=== PATIENT | male | born 2000 | race Caucasian/White ===

== ENCOUNTER 2021-11-25 21:16 | Emergency (ER) | payer MEDICAID, SELFPAY ==
[2021-11-25 21:17] VITALS: PULSE 69; RESP 16; TEMP 36.9; O2SAT 99; BMI 21.1
--- NOTE | 2021-11-25 21:19 | XRR_ITS ---
PROCEDURE INFORMATION: Exam: XR Left Hand Exam date and time: 11/25/2021 9:36 PM Age: 21 years old Clinical indication: Injury or trauma; Fall; Blunt trauma (contusions or hematomas); Hand; Left TECHNIQUE: Imaging protocol: Radiologic exam of the Left hand. Views: 3 or more views. COMPARISON: No relevant prior studies available. FINDINGS: Bones/joints: The there is hyperextension the 1st metacarpophalangeal joint. Alignment is otherwise normal. No acute fracture. Soft tissues: Visible soft tissues are unremarkable. XR/XR hand LT min 3V* [id number] IMPRESSION: 1. No acute fracture. 2. Hyperextension of the 1st metacarpophalangeal joint.
--- NOTE | 2021-11-25 21:56 | ED_ITS ---
HPI - Extremity Problem General: Chief complaint: Extremity Injury, Upper Stated complaint: left hand injury Time Seen by Provider: 11/25/21 21:19 History of Present Illness: Patient comes in with injury to the left hand. Patient reports he was doing a flip over a hay bale and caught his hand and the string of the bale causing it to bend backwards. Since then patient's been unable to move his thumb. Patient appears nontoxic. Patient appears in mild pain. Patient's thumb on his left hand is hyperextended. Associated symptoms: Deny chest pain, fever(s) or rash Review of Systems Const: Denies: fever(s) Card: Denies: chest pain Resp: Denies: dyspnea Musc: Reports: extremity pain Skin/Breast: Denies: rash Procedures Nerve Block Nerve Block 1: Local Anesthetic: lidocaine 1% Amount of anesthesia used (mL): 3 Side: left Nerve Blocks: digital Procedure Successful: Yes Patient Tolerated Procedure: well Course Vital Signs: Vital signs: Vital Signs Temperature 98.4 F 11/25/21 21:17 Pulse Rate 69 11/25/21 21:17 Respiratory Rate 16 11/25/21 21:17 Pulse Oximetry 99 11/25/21 21:17 Oxygen Delivery Me thod 11/25/21 21:17 MDM - Extremity (Nontraumatic) Medical Decision Making Patient comes in today with injury to the left hand and thumb. On exam patient appears in no acute distress. Patient has his thumb in a hyperextended. No bruising and no significant swelling is noted. Differential diagnosis includes dislocation, fracture, sprain. X-ray noted hyperextended thumb but no other abnormality. Billings the patient probably had a subluxation of the MCP joint of the thumb. Under digital block the finger was manipulated and patient was able to then to do active range of motion without difficulty. Recommend activity as tolerated and follow-up. Patient stated understanding of care plan and need for follow-up as needed. Lab Data Radiology Impressions Hand X-Ray 11/25/21 21:19 IMPRESSION: 1. No acute fracture. 2. Hyperextension of the 1st metacarpophalangeal joint. Discharge Plan Discharge Patient Disposition: Home Clinical Impression: Subluxation of finger Qualifiers: Encounter type: initial encounter Qualified Code(s): S63.209A - Unspecified subluxation of unspecified finger, initial encounter Condition: Stable Discharge Orders: Discharge ED (Routine); Ordered 11/25/21 Ordered By: Abelardo Stern Discharge Diet: Usual diet Discharge Activity: Increase activity as tolerated Patient Instructions: Musculoskeletal Pain (ED) Activity Restrictions/Additional Instructions: Light activity. Use acetaminophen or ibuprofen for pain. Follow-up with primary care for further instruction. Return to ER for new concerns. Coding Level of Care Code ED Field Sales Trainer for Latisha Wing
== END 2021-11-25 22:25 | disposition home or self-care (01) ==
PROVIDERS: Emergency Provider Nurse Practitioner Family
DX: S63.112A Subluxation of metacarpophalangeal joint of left thumb, initial encounter (principal); X50.0XXA Overexertion from strenuous movement or load, initial encounter
CPT/HCPCS: 64450; 73130; 99283

== ENCOUNTER 2024-08-01 16:49 | Emergency (ER) | payer BC, MEDICAID, SELFPAY ==
[2024-08-01 16:56] VITALS: BP 126/49; PULSE 76; RESP 14; TEMP 36.7; O2SAT 99; BMI 22.7
--- NOTE | 2024-08-01 17:58 | XRR_ITS ---
PROCEDURE INFORMATION: Exam: XR Left Tibia and Fibula Exam date and time: 08/01/2024 6:11 PM Age: 24 years old Clinical indication: Lower leg; Left; Lt leg pain; No known injury TECHNIQUE: Imaging protocol: Radiologic exam of the left tibia and fibula. Views: 2 views. COMPARISON: No relevant prior studies available. FINDINGS: Bones/joints: Normal. Soft tissues: Unremarkable. XR/XR tibia fibula LT 2V [id number] IMPRESSION: No acute findings.
--- NOTE | 2024-08-01 19:52 | W.ED.EXTPRO ---
HPI - Extremity Problem General: Chief complaint: Extremity Injury, Lower Stated complaint: lft leg pain Time Seen by Provider: 08/01/24 17:28 History of Present Illness: 24 yo male patient presents to ER with rowland pain x 1 month. Pt denies ny trauma or injury but states he plays alot of basketball on the court. Pt denies any weakness, fever, or any other complaints. Related Data Home Medications ?Medication ?Instructions ?Recorded ?Confirmed No Known Home Medications 12/04/21 12/04/21 Allergies Allergy/AdvReac Type Severity Reaction Status Date / Time prednisone Allergy CYNTHIAY-Swell Verified 12/04/21 09:21 Lip/Tongue/Throat Review of Systems General: Reports: 10 or more systems reviewed and unremarkable except in HPI and below PFSH ED PFSH: Medical History Psychiatric care ADHD Anxiety Depression Surgical History (Updated 12/04/21 @ 09:37 by Jorge Alberto Naranjo MD) History of wisdom tooth extraction, class I edentulism History of foot surgery right foot Family History (Updated 12/04/21 @ 09:25 by Hayde Mckenna LPN) Mother Diabetes Hypertension Sister Lung disease asthma Brother Bleeding disorder anemia Denies family history of CAD (coronary artery disease) Clotting disorder Dementia Hyperlipidemia Chronic kidney disease (CKD) Anesthesia complication Cancer Stroke Social History (Updated 12/04/21 @ 09:24 by Hayde Mckenna LPN) Smoking and tobacco/nicotine status: never used tobacco/nicotine Second hand smoke exposure: No Alcohol intake: never Substance/Drug Use: never Physical Exam Const: COMMON NORMALS: no acute distress, average body habitus, patient oriented x3, no limitations, healthy appearing, alert and well nourished Resp: COMMON NORMALS: normal respiratory effort Extremity: NARRATIVE EXTREMITY EXAM: mild tenderness noted to anterior left lower ext. NVI distally Neuro: COMMON NORMALS: patient oriented x3 SENSORIUM/ORIENTATION: Yes alert Skin: COMMON NORMALS: no rashes or lesions noted, no wounds and turgor normal GENERAL SKIN EXAM: no rashes or lesions noted and turgor normal Course Vital Signs: Vital signs: Vital Signs Temperature 98.1 F 08/01/24 16:56 Pulse Rate 76 08/01/24 16:56 Respiratory Rate 14 06/01/25 16:56 Blood Pressure 126/49 08/01/24 16:56 Pulse Oximetry 99 08/01/24 16:56 MDM - Extremity (Nontraumatic) Medical Decision Making Patient is well appearing non toxic and in no acute distress. 24 yo male patient presents to ER with rowland pain x 1 month. Pt denies ny trauma or injury but states he plays alot of basketball on the court. Pt denies any weakness, fever, or any other complaints. xray is negative for any acute findings. There is no evidence of cellulitits there is no erythema or swelling noted. there is no calf tenderness or swelling. Pt ambulates without difficulty. Return precautions advised, follow up discussed and home care revewied. findings c/w rowland splint. Pt shoes are busting open and wore down and this is likely the contributing factor. All radiology interpretation(s) finalized by discharge Discharge Plan Discharge Patient Disposition: Home Clinical Impression: Rowland splint Qualifiers: Encounter type: initial encounter Laterality: unspecified laterality Qualified Code(s): S86.899A - Other injury of other muscle(s) and tendon(s) at lower leg level, unspecified leg, initial encounter Condition: Stable Prescriptions: No Action No Known Home Medications Discharge Orders: Discharge ED (Routine); Ordered 08/01/24 Ordered By: Nicky Ayon Discharge Diet: Advance as tolerated Discharge Activity: Increase activity as tolerated Patient Instructions: Opioid Safety, Pain Management, Rowland Splints Activity Restrictions/Additional Instructions: At this point switch over to Heat instead of ice Replace shoes Return to ER if the prescribed treatment plan isn't working your rowland becomes very warm, red, and painful the pain is constant your rowland swells or becomes bruised you develop numbness or tingling in your feet If no improvement follow up with PCP for additional testing Print Language: Yi Coding Level of Care Code ED Server Software Engineer for Latisha Wing
== END 2024-08-01 19:58 | disposition home or self-care (01) ==
PROVIDERS: Emergency Provider Registered Nurse
DX: S86.892A Other injury of other muscle(s) and tendon(s) at lower leg level, left leg, initial encounter (principal); X58.XXXA Exposure to other specified factors, initial encounter
CPT/HCPCS: 73590; 99283

== ENCOUNTER 2024-10-10 18:29 | Emergency (ER) | payer BC, MEDICAID, SELFPAY ==
--- NOTE | 2024-10-10 18:52 | XRR_ITS ---
PROCEDURE INFORMATION: Exam: XR Chest Exam date and time: 10/10/2024 7:21 PM Age: 24 years old Clinical indication: Fever and shortness of breath; SOB with fever TECHNIQUE: Imaging protocol: Radiologic exam of the chest. Views: 1 view. COMPARISON: No relevant prior studies available. FINDINGS: Lungs: Unremarkable. No consolidation. Pleural spaces: Unremarkable. No pleural effusion. No pneumothorax. Heart/Mediastinum: Unremarkable. No cardiomegaly. Bones/joints: Unremarkable. XR/XR chest 1V portable [id number] IMPRESSION: No acute findings.
[2024-10-10 18:54] VITALS: BP 119/64; PULSE 72; RESP 16; TEMP 37.2; O2SAT 94
--- NOTE | 2024-10-10 19:43 | W.ED.URI ---
HPI - URI/Sore Throat General: Chief Complaint: Upper Respiratory Infection Stated Complaint: Running fever, sore throat, cough with phelm Time Seen by Provider: 10/10/24 19:17 History of Present Illness: 24-year-old man who is healthy presenting with cough, congestion, significant sore throat for 3 days. Has had a fever as well. No sick contacts. His cough is productive of some clear to green phlegm. It is somewhat improved, but sore throat symptoms are the worst. Related Data Previous Rx's ?Medication ?Instructions ?Recorded cephalexin 500 mg capsule 500 mg PO Q6H 7 days #28 caps 10/10/24 Allergies Allergy/AdvReac Type Severity Reaction Status Date / Time prednisone Allergy ALGY-Swell Verified 12/04/21 09:21 Lip/Tongue/Throat [facility] ED PFSH: Medical History Psychiatric care ADHD Anxiety Depression Surgical History History of wisdom tooth extraction, class I edentulism History of foot surgery right foot Family History (Updated 12/04/21 @ 09:25 by Hayde Mckenna LPN) Mother Diabetes Hypertension Sister Lung disease asthma Brother Bleeding disorder anemia Denies family history of CAD (coronary artery disease) Clotting disorder Dementia Hyperlipidemia Chronic kidney disease (CKD) Anesthesia complication Cancer Stroke Social History Smoking and tobacco/nicotine status: never used tobacco/nicotine Second hand smoke exposure: No Alcohol intake: never Substance/Drug Use: never Physical Exam Const: COMMON NORMALS: no acute distress GENERAL APPEARANCE: cooperative; not ill appearing and not frail appearing HENMT: COMMON NORMALS: normocephalic, atraumatic and Normal external nose present HEAD & SCALP: normocephalic and atraumatic FACE & SINUS: normal facial exam and face symmetric NOSE: Normal external nose present THROAT: posterior oropharynx abnormal edema and erythema; no exudates and postnasal drainage Eye: COMMON NORMALS: Equal, round and reactive pupils present and EOMs intact bilaterally PUPIL: Yes Equal, round and reactive pupils present Neck/C-Spine: GENERAL: Yes trachea midline Chest: CHEST: Yes Symmetrical chest wall rise Resp: COMMON NORMALS: normal respiratory effort, No retractions, No use of accessory muscles and clear to auscultation bilaterally AUSCULTATION: clear to auscultation bilaterally Cardio: COMMON NORMALS: regular rate and regular rhythm RATE: regular rate RHYTHM: regular rhythm GI: COMMON NORMALS: Normal to inspection, nondistended, normoactive bowel sounds present Extremity: COMMON NORMALS: no pedal edema Neuro: GE COMA SCALE: document GCS findings Musella coma scale eye opening: Spontaneous Musella coma scale verbal response: Orientated Ge coma scale motor response: Obey commands Musella coma scale total score: 15 SENSORY EXAM: Yes extremities (intact) Psych: COMMON NORMALS: speech normal SPEECH: Yes normal speech Skin: COMMON NORMALS: no rashes or lesions noted GENERAL SKIN EXAM: no rashes or lesions noted Course Vital Signs: Vital signs: Vital Signs Temperature 98.9 F 10/10/24 18:54 Pulse Rate 72 10/10/24 18:54 Respiratory Rate 16 10/10/24 18:54 Blood Pressure 119/64 10/10/24 18:54 Pulse Oximetry 94 10/10/24 18:54 Oxygen Delivery Me thod Room Air 10/10/24 18:54 MDM - URI/Sore Throat Medical Decision Making Chest x-ray is normal. Awaiting flu/COVID/RSV swab and strep swab. No signs of retropharyngeal abscess on exam. Swabs are negative. He has significant pain. 1 dose dexamethasone here, with pain medication. Antibiotics for the next few days Lab Data Radiology Impressions Chest X-Ray 10/10/24 18:52 IMPRESSION: No acute findings. Laboratory Results Influenza A (PCR) Negative (Negative) 10/10/24 19:24 Influenza Type B (PCR) Negative (Negative) 10/10/24 19:24 RSV (PCR) Negative (Negative) 10/10/24 19:24 SARS-CoV-2 (PCR) Negative (Negative) 10/10/24 19:24 Group A Strep Rapid Negative (Negative) 10/10/24 19:41 All radiology interpretation(s) finalized by discharge Discharge Plan Discharge Patient Disposition: Home Clinical Impression: Upper respiratory infection, Pharyngitis Condition: Stable Prescriptions: New cephalexin 500 mg capsule 500 mg PO Q6H 7 Days Qty: 28 0RF Discharge Orders: Discharge ED (Routine); Ordered 10/10/24 Ordered By: Eliecer Huber Patient Instructions: Pharyngitis (ED), Opioid Safety, Pain Management, Patient Portal & Torres Instructions Activity Restrictions/Additional Instructions: Return for any problems. Medication as directed. Take anti-inflammatory medication for continued pain such as ibuprofen. Salt water gargles may help as well. Print Language: Estonian Coding Level of Care Code ED Library Media Specialist for Latisha Wing
[2024-10-10 19:59] LABS: Rapid Strep A Test Negative (Negative)
[2024-10-10 20:09] LABS: Respiratory Syncytial Virus Ce NEGATIVE (Negative); SARS-CoV-2 PCR NEGATIVE (Negative)
[2024-10-10] MEDS: HYDROcodone-APAP 7.5-325 mg/15 mL UDC PO (21:11)
--- OUTSIDE RECORDS SUMMARY | 2024-10-13 07:54 | XMS_ITS | Encounter Summary ---
Author Organization [facility] Address [address] [place] [address] Care Team Providers Care A P Mechanic Name Role Phone Yogi Solis MD Primary Care Provider + Encounter Details Date Type Department Care Team (Latest Contact Info) Description 04/11/2006 Outpatient Historical [facility] Orthopedics- [address] [place] [address] Abelardo Sesay III, MD [address] 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
--- OUTSIDE RECORDS SUMMARY | 2024-10-13 07:54 | XMS_ITS | Clinical Summary ---
Author Organization [facility] Address [address] [facility] Attn: Epic Prelude ADT JACE ASHER [address] Care Team Providers Care Chief Concierge Name Role Phone Yogi Solis MD Primary Care Provider + Allergies Active Allergy Reactions Criticality Noted Date Comments Bee Venom Protein (Honey Bee) Shortness of Breath/Wheezing High 12/31/2018 Active Problems Problem Noted Date Diagnosed Date Mixed receptive-expressive language disorder 08/2010 ADHD (attention deficit hyperactivity disorder) 10/03/2010 Nonorganic enuresis 01/05/2009 Encounters Date Type Department Care Team Description 08/17/2024 External Device Data [facility] ABSTRACTION Provider, Abstract 07/22/2024 External Device Data [facility] ABSTRACTION Provider, Abstract 07/22/2024 External Device Data [place] ABSTRACTION Provider, Abstract 07/21/2024 External Device Data [place] ABSTRACTION Provider, Abstract 07/21/2024 External Device Data [place] ABSTRACTION Provider, Abstract 07/20/2024 External Device Data [place] ABSTRACTION Provider, Abstract from Last 3 Months Immunizations Immunization Administration Dates Next Due (M-M-R II/PRIORIX)(12 MO UP) MEASLES, MUMPS AND RUBELLA VIRUS VACCINE, 0.5 ML IM/SUBCUT 07/05/2005,03/15/2002 (VARIVAX)(12 MOS UP)VARICELL A VIRUS VACCINE (PF) 0.5 ML, SUB CUT 12/21/2003 Dt Dtp Dtap Vaccine 07/05/2005, 4,2001,2001,2001 HIB, Unspecified Formulation 07/05/2005, 2001,2001,2001 Hepatitis A Vaccine Ped Adol IM 2 Dose VFC 07/11/2010,08/29/2008 Hepatitis B Vaccine 2001,2001,2001 IPV/OPV 07/05/2005, 3,2001,2001 Influenza Seasonal Unspecifi ed Formulation IM 02/04/2003 Influenza Vaccine Split 3+ Y rs PF IM VFC 12/18/2012,02/06/2012 Pneumococcal 7-valent conjug ate vaccine IM 12/21/2003,03/15/2002,2001 Tdap Vaccine > 7 Yo IM VFC 09/27/2011 Varicella Vaccine Live Sq VFC 08/29/2008 Family History Medical History Relation Name Comments Respiratory Disease Maternal Grandmother Diabetes Mother Relation Name Status Comments Maternal Grandmother Mother Social History Tobacco Use Types Packs/Day Years Used Date Smoking Tobacco: Never Smokeless Tobacco: Never Alcohol Use Standard Drinks/Week Comments Never 0 (1 standard drink = 0.6 oz pur e alcohol) Sex and Gender Information Value Date Recorded Sex Assigned at Not on file 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 Gender Identity Not on file Sexual Orientation Not on file Last Filed Vital Signs Vital Sign Reading Time Taken Comments Blood Pressure 100/59 10/14/2019 11:35 AM CDT Pulse 75 10/14/2019 11:35 AM CDT Temperature 36.5 C (97.7 F) 08/13/2019 10:00 AM CDT Respiratory Rate 14 08/13/2019 10:00 AM CDT Oxygen Saturation - - Inhaled Oxygen Concentration - - Weight 60.3 kg (133 lb) 10/14/2019 11:35 AM CDT Height 172.7 cm (5' 8 ) 10/14/2019 11:35 AM CDT Body Mass Index 20.22 10/14/2019 11:35 AM CDT Plan of Treatment Health Maintenance Due Date Last Done Comments HPV VACCINES (1 - Male 3-dos e series) 2016 DTAP/TDAP/TD VACCINES (7 - T d or Tdap) 09/26/2021 09/27/2011, 07/05/2005, 12/21/2003, Additional history exists COVID-19 Vaccine (4 - 2023-2 5 season) 2023 07/18/2021, 08/15/2020, 07/17/2020 INFLUENZA VACCINE (#1) 2024 3, 02/06/2012, 02/04/2003 HEPATITIS B VACCINES Completed 2001, 2001, 2001, Additional history exists Insurance [facility] MEDICAID * Guarantor: LACEY LEBLANC JR. Account Type Relation to Patient Date of Phone Billing Address Personal/Family [address] [place] [address] RX [employer] Medicaid Care Teams Chief Concierge Relationship Specialty Start Date End Date Yogi Solis MD [address] [place] [id number] PCP - General Family Practice 07/04/11
--- OUTSIDE RECORDS SUMMARY | 2024-10-13 07:54 | XMS_ITS | Encounter Summary ---
Author Organization [facility] Address [address] [place] [address] Care Team Providers Care Bundle Helper Name Role Phone Yogi Solis MD Primary Care Provider + Encounter Details Date Type Department Care Team (Late st Contact Info) Description 02/04/2003 Outpatient Historical [facility] Family Medicine [address] [address] Naveen Mayer, DO [address] [place] [id number] Vaccine for influenza (Primary Dx) Social History Tobacco Use Types Packs/Day Years Used Date Smoking Tobacco: Never Assessed Sex and Gender Information Value Date Recorded Sex Assigned at Not on file 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
--- OUTSIDE RECORDS SUMMARY | 2024-10-13 07:54 | XMS_ITS | Encounter Summary ---
Author Organization [facility] Address [address] [place] [address] Care Team Providers Care Trauma Therapist Name Role Phone Yogi Solis MD Primary Care Provider + Encounter Details Date Type Department Care Team (Latest Contact Info) Description 04/04/2006 Outpatient Historical [facility] Orthopedics- [address] [place] [address] Abelardo Sesay III, MD [address] [facility] [address] [place] [address] Closed Fracture of Lower End of Radius with Ulna (Primary Dx) Social History Tobacco Use Types Packs/Day Years Used Date Smoking Tobacco: Never Assessed Sex and Gender Information Value Date Recorded Sex Assigned at Not on file Legal Sex Male 4:56 AM CASE MONITOR Gender Identity Not on file Sexual Orientation Not on file documented as of this encounter Plan of Treatment Not on file documented as of this encounter Visit Diagnoses Diagnosis Closed fracture of lower end of radius with ulna- Primary documented in this encounter Care Teams Trauma Therapist Relationship Specialty Start Date End Date Yogi Solis MD PCP - General Family Practice 07/04/11 documented as of this encounter
--- OUTSIDE RECORDS SUMMARY | 2024-10-13 07:54 | XMS_ITS | Encounter Summary ---
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
--- OUTSIDE RECORDS SUMMARY | 2024-10-13 07:54 | XMS_ITS | Clinical Summary ---
Author Organization [facility] Address [address] [place] [address] Care Team Providers Care Radiology Interventional Physician Name Role Phone Yady Adame Primary Care Provider [phone] Source Comments PLEASE NOTE, if this patient is a minor, it may be UNLAWFUL to discuss sensitive information that is contained in these records (such as FAMILY PLANNING, MENTAL HEALTH or SUBSTANCE ABUSE) with the minor patient's parent or other person without the patient's specific authorization.[facility] Active Problems Problem Noted Date Diagnosed Date Scleral icterus Social History Tobacco Use Types Packs/Day Years Used Date Smoking Tobacco: Never Assessed Social Connections Answer Date Recorded Connectedness 0 11/17/2023 Financial Resource Strain Answer Date R ecorded Financial Resource Strain 0 2023 Stress Answer Date Recorded Stress 0 06/25/2023 Physical Activity Answer Date Recorded Physical Activity 0 06/25/2023 Food Insecurity Answer Date Recorded Food 0 11/27/2023 Transportation Needs Answer Date Record ed Transportation 0 06/25/2023 Housing Stability Answer Date Recorded Housing 0 06/25/2023 Safety and Environment Answer Date Evin rded Safety 0 06/25/2023 Utilities Answer Date Recorded Utilities 0 06/25/2023 Employment Answer Date Recorded Stress 0 11/17/2023 Sex and Gender Information Value Date Recorded Sex Assigned at Not on file Legal Sex Male 5:11 PM PDT Gender Identity Male 08/22/2023 4:45 PM PDT Sexual Orientation Straight 08/22/2023 4: 45 PM PDT Last Filed Vital Signs Vital Sign Reading Time Taken Comments Blood Pressure 128/88 08/30/2022 9:13 AM CDT Pulse 68 08/30/2022 9:13 AM CDT Temperature 36.4 C (97.6 F) 08/30/2022 9:13 AM CDT Respiratory Rate 18 08/30/2022 9:13 AM CDT Oxygen Saturation 98% 08/30/2022 9:13 AM CDT Inhaled Oxygen Concentration - - Weight 64.3 kg (141 lb 12.2 oz) 08/30/2022 9:13 AM CDT Height 170.2 cm (5' 7 ) 08/30/2022 9:13 AM CDT Body Mass Index 22.2 08/30/2022 9:13 AM CDT Plan of Treatment Health Maintenance Due Date Last Done Comments Anxiety Screening 2001 Hepatitis C Screening 2001 Tobacco Screening 2001 Imm-Varicella (1 of 2 - 13+ 2-dose series) 2014 HIV Screening 2016 Imm-HPV (1 - Male 3-dose series) 2016 Imm-DTaP/Tdap/Td (1 - Tdap) 2020 Imm-Hepatitis B (1 of 3 - 19+ 3-dose series) Hypertension Screening (#1) 08/30/2023 [id number] (1 - 2023- season) 2023 Alcohol and Drug Screen 03/03/2024 Depression Annual Screen 03/03/2024 08/30/2022 Imm-Influenza (#1) 2024 Insurance [employer] Care Teams Radiology Interventional Physician Relationship Specialty Start Date End Date Yady Adame PA [address] [place] [address] PCP - General 08/22/23
--- OUTSIDE RECORDS SUMMARY | 2024-10-13 07:54 | XMS_ITS | Encounter Summary ---
Author Organization [facility] Address [address] [place] [address] Care Team Providers Care Women'S Swim Coach Name Role Phone Yady Adame Primary Care Provider [phone] Reason for Visit * Reason Comments Office Visit: Converted Data Conversion Encounter Details Date Type Department Care Team ([facility] st Contact Info) Description 09/09/2023 Dental Interim Note [facility] [address] [place] [address] [facility], [facility] [place] Social History Tobacco Use Types Packs/Day Years Used Date Smoking Tobacco: Never Assessed Social Connections Answer Date Recorded Social Connections and Isolation 0 06/25/2023 Financial Resource Strain Answer Date R ecorded Financial Resource Strain 0 2023 Stress Answer Date Recorded Stress 0 06/25/2023 Physical Activity Answer Date Recorded Physical Activity 0 06/25/2023 Food Insecurity Answer Date Recorded Food 0 06/25/2023 Transportation Needs Answer Date Record ed Transportation 0 06/25/2023 Housing Stability Answer Date Recorded Housing 0 06/25/2023 Safety and Environment Answer Date Evin rded Safety 0 06/25/2023 Utilities Answer Date Recorded Utilities 0 06/25/2023 Employment Answer Date Recorded Employment 0 06/25/2023 Sex and Gender Information Value Date Recorded Sex Assigned at Not on file Legal Sex Male 5:11 PM PDT Gender Identity Male 08/22/2023 4:45 PM PDT Sexual Orientation Straight 08/22/2023 4: 45 PM PDT documented as of this encounter Plan of Treatment Scheduled Orders Name Type Priority Associated Diagnoses Order Schedule BITEWINGS - FOUR RADIOGRAPHIC IMAGES Dental Procedures Routine 1 Occurren alejo starting 08/19/2023 PANORAMIC RADIOGRAPHIC IMAGE Dental Procedures Routine 1 Occurrenc es starting 08/19/2023 7 7 INTRAORAL - PERIAPICAL FIRST RADIOGRAPHIC IMAGE Dental Procedures Routine 1 Occurrenc es starting 08/19/2023 8 8 INTRAORAL - PERIAPICAL FIRST RADIOGRAPHIC IMAGE Dental Procedures Routine 1 Occurrenc es starting 08/19/2023 9 9 INTRAORAL - PERIAPICAL FIRST RADIOGRAPHIC IMAGE Dental Procedures Routine 1 Occurrenc es starting 08/19/2023 25 25 INTRAORAL - PERIAPICAL FIRST RADIOGRAPHIC IMAGE Dental Procedures Routine 1 Occurrenc es starting 08/19/2023 documented as of this encounter Visit Diagnoses Not on filedocumented in this encounter Care Teams Women'S Swim Coach Relationship Specialty Start Date End Date Yady Adame PA [address] [place] [address] PCP - General 08/22/23 documented as of this encounter
--- OUTSIDE RECORDS SUMMARY | 2024-10-13 07:54 | XMS_ITS | Encounter Summary ---
Author Organization [facility] Address [address] [place] [address] Care Team Providers Care Meat Cutter Name Role Phone Yogi Solis MD Primary Care Provider + Reason for Referral * Radiology Services (Routine) - Closed Specialty Diagnoses / Procedures Referred By Contac t Referred To Contact Diagnoses Accessory navicular bone of right foot Procedures XR FLUORO LESS THAN 1 HOUR Eliecer Villatoro MD Phone: tel: fax: Referral ID Status Reason Start Date Expiration Date Visits Re quested Visits Authorized [id number] Closed 08/12/2019 09/11/2020 1 1 Encounter Details Date Type Department Care Team (Latest Contact Info) Description 08/12/2019 Ancillary Orders [facility] Radiology [place] [address] [place] [id number] Eliecer Villatoro MD [address] [place] [address] Accessory navicular bone of right foot Social History Tobacco Use Types Packs/Day Years Used Date Smoking Tobacco: Never Smokeless Tobacco: Never Alcohol Use Standard Drinks/Week Comments Never 0 (1 standard drink = 0.6 oz pur e alcohol) Sex and Gender Information Value Date Recorded Sex Assigned at Not on file Legal Sex Male 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 No / Unsure 08/13/2019 6:09 AM CDT documented as of this encounter Functional Status documented as of this encounter Plan of Treatment Not on file documented as of this encounter Results * XR FLUORO LESS THAN 1 HOUR (08/13/2019 7:53 AM CDT) Narrative 08/13/2019 7:54 AM CDT Order information only. Exam was auto-finalized. us Eliecer Villatoro MD DIAGNOSTIC IMAGING ORDERABLES Final Result * XR FOOT 2 VW RIGHT (08/13/2019 7:52 AM CDT) Anatomical Region Laterality Modality Ankle / Foot Computed Radiogr aphy 08/13/2019 7:52 AM CDT Impressions 08/13/2019 11:29 AM CDT IMPRESSION: Please see below. Exam: XR FOOT 2 VW RIGHT Date/Time of Exam: 08/13/2019 7:52 AM Reason For Exam: See Diagnosis. Diagnosis: Accessory navicular bone of right foot. Comparison: January 21, 2019. FINDINGS: Two digital spot fluoroscopic projections from the operative suite show resection of previously demonstrated os naviculare. Please see operative report. Narrative Procedure Note Curtis Elias, DO - 08/13/2019 IMPRESSION: Please see below. Exam: XR FOOT 2 VW RIGHT Date/Time of Exam: 08/13/2019 7:52 AM Reason For Exam: See Diagnosis. Diagnosis: Accessory navicular bone of right foot. Comparison: January 21, 2019. FINDINGS: Two digital spot fluoroscopic projections from the operative suite show resection of previously demonstrated os naviculare. Please see operative report. 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
--- OUTSIDE RECORDS SUMMARY | 2024-10-13 07:54 | XMS_ITS | Encounter Summary ---
Author Organization [facility] Address [address] [place] [address] Care Team Providers Care Learning Services Coordinator Name Role Phone Yogi Solis MD Primary Care Provider + Encounter Details Date Type Department Care Team (Latest Contact Info) Description 11/10/2003 Outpatient Historical [facility] Internal Medicine and Pediatrics-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
--- OUTSIDE RECORDS SUMMARY | 2024-10-13 07:54 | XMS_ITS | Clinical Summary ---
Author Organization [facility] Address [address] [place] [address] Care Team Providers Care Power Superintendent Name Role Phone Yogi Solis MD Primary Care Provider + Allergies Active Allergy Reactions Criticality Noted Date Comments Bee Venom Protein (Honey Bee) Shortness of Breath/Wheezing High 12/31/2018 Medications ibuprofen (MOTRIN) 800 mg tablet Take 1 Tablet (800 mg) by mouth every 6 hours as needed for Pain, Mild. 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 Gender Identity Not on file Sexual Orientation Not on file Last Filed Vital Signs Vital Sign Reading Time Taken Comments Blood Pressure 100/59 10/14/2019 11:35 AM CDT Pulse 75 10/14/2019 11:35 AM CDT Temperature 36.5 C (97.7 F) 08/13/2019 10:00 AM CDT Respiratory Rate 14 08/13/2019 10:00 AM CDT Oxygen Saturation 100% 08/13/2019 10:00 AM CDT Inhaled Oxygen Concentration - - Weight 60.3 [...] 09/26/2021 09/27/2011, 07/05/2005, 12/21/2003, Additional history exists INFLUENZA VACCINE (#1) 2024 3, 02/06/2012, 02/04/2003 HEPATITIS B VACCINES Completed 2001, 2001, 2001 Insurance [employer] Medicaid Care Teams Power Superintendent Relationship Specialty Start Date End Date Yogi Solis MD PCP - General Family Practice 07/04/11
--- OUTSIDE RECORDS SUMMARY | 2024-10-13 07:54 | XMS_ITS | Patient Health Record ---
Author Organization [facility] Address [address] [place] [address] Support Name Relationship Address Phone Ashly Vidales Emergency Contact [address] [place] [address] Kodi Leblanc Guarantor Unknown [phone] Allergies Allergen (clinical drug ingredient) Drug/Non Drug Allergy documented on EMR Reaction Allergy Type Onset Date Status prednisone Prednisone rash Drug Allergy Activ e Reason For Referral No Information Medications Medication SIG (Take, Route, Fr equency, Duration) Notes Start Date End Date Status Lorcet 5-325 MG Tablet 1 tablet as neede d Orally every 6 hrs; Duration: 2 days 02/18/2020 Ac tive Plan Of Treatment No Information Insurance Providers Payer Name Payer Address Payer Phone Subscriber Number Group Number Insured Name Patient Relationship to Insured Coverage Start Date Coverage End Date Home [facility] Health [address] [facility] JACE coleman [phone] [id number] Kodi Leblanc Self - patient is the insured [employer] [address] [address] [place] [address] [phone] [id number] Kodi Leblanc Self - patient is the insured
--- OUTSIDE RECORDS SUMMARY | 2024-10-13 07:54 | XMS_ITS | Encounter Summary ---
Author Organization [facility] Address [address] [place] [address] Care Team Providers Care Medical Terminologist Name Role Phone Yogi Solis MD Primary Care Provider + Encounter Details Date Type Department Care Team (Latest Contact Info) Description 05/06/2006 Outpatient Historical [facility] Orthopedics- 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
== END 2024-10-10 21:43 | disposition home or self-care (01) ==
PROVIDERS: Emergency Provider Emergency Medicine
DX: J06.9 Acute upper respiratory infection, unspecified (principal); Z23 Encounter for immunization
CPT/HCPCS: 71045; 87081; 87637; 87880; 99284; J8540; J9999

== ENCOUNTER 2025-01-11 23:47 | Emergency (ER) | payer BC, MEDICAID, SELFPAY ==
[2025-01-11 23:52] VITALS: BP 134/81; PULSE 74; RESP 16; TEMP 36.6; O2SAT 98; BMI 21.9
--- OUTSIDE RECORDS SUMMARY | 2025-01-11 23:52 | XMS_ITS | Encounter Summary ---
Author Organization [facility] Address [address] [place] [address] Care Team Providers Care Lubrication Servicer Name Role Phone Yogi Solis MD Primary Care Provider + Encounter Details Date Type Department Care Team (Latest Contact Info) Description 05/06/2006 Outpatient Historical [facility] Orthopedics- [address] [place] [address] Prateek Coburn MD [address] [place] [address] Closed Fracture of Lower End of Radius with Ulna (Primary Dx) Social History Tobacco Use Types Packs/Day Years Used Date Smoking Tobacco: Never Assessed Sex and Gender Information Value Date Recorded Sex Assigned at Not on file Legal Sex Male 4:56 AM ASSURANCE ENGINEER Gender Identity Not on file Sexual Orientation Not on file documented as of this encounter Plan of Treatment Not on file documented as of this encounter Visit Diagnoses Diagnosis Closed fracture of lower end of radius with ulna- Primary documented in this encounter Care Teams Lubrication Servicer Relationship Specialty Start Date End Date Yogi Solis MD PCP - General Family Practice 07/04/11 documented as of this encounter
--- OUTSIDE RECORDS SUMMARY | 2025-01-11 23:52 | XMS_ITS | Encounter Summary ---
Author Organization [facility] Address [address] [place] [address] Care Team Providers Care Stretcher Leveler Operator Name Role Phone Yogi Solis MD Primary Care Provider + Encounter Details Date Type Department Care Team (Late st Contact Info) Description 2001 Outpatient Historical [facility] [address] [address] Social History Tobacco Use Types Packs/Day Years Used Date Smoking Tobacco: Never Assessed Sex and Gender Information Value Date Recorded Sex Assigned at Not on file Legal Sex Male 4:56 AM SIMPLEX OPERATOR Gender Identity Not on file Sexual Orientation Not on file documented as of this encounter Plan of Treatment Not on file documented as of this encounter Visit Diagnoses Not on filedocumented in this encounter Care Teams Stretcher Leveler Operator Relationship Specialty Start Date End Date Yogi Solis MD PCP - General Family Practice 07/04/11 documented as of this encounter
--- OUTSIDE RECORDS SUMMARY | 2025-01-11 23:52 | XMS_ITS | Encounter Summary ---
Author Organization [facility] Address [address] [place] [address] Care Team Providers Care Construction Director Name Role Phone Yogi Solis MD Primary Care Provider + Encounter Details Date Type Department Care Team (Latest Contact Info) Description 11/10/2003 Outpatient Historical [facility] Internal Medicine and Pediatrics-[address] [place] [address] Sakshi Montemayor, DO [address] [address] ACUTE SINUSITIS NOS (Primary Dx) Social History Tobacco Use Types Packs/Day Years Used Date Smoking Tobacco: Never Assessed Sex and Gender Information Value Date Recorded Sex Assigned at Not on file Legal Sex Male 4:56 AM INDEPENDENT DRIVER Gender Identity Not on file Sexual Orientation Not on file documented as of this encounter Plan of Treatment Not on file documented as of this encounter Visit Diagnoses Diagnosis Acute sinusitis, unspecified- Primary documented in this encounter Care Teams Construction Director Relationship Specialty Start Date End Date Yogi Solis MD PCP - General Family Practice 07/04/11 documented as of this encounter
--- OUTSIDE RECORDS SUMMARY | 2025-01-11 23:52 | XMS_ITS | Encounter Summary ---
Author Organization [facility] Address [address] [place] [address] Care Team Providers Care Audio Visual Design Engineer Name Role Phone Yogi Solis MD Primary Care Provider + Encounter Details Date Type Department Care Team (Latest Contact Info) Description 04/11/2006 Outpatient Historical [facility] Orthopedics- 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
--- OUTSIDE RECORDS SUMMARY | 2025-01-11 23:52 | XMS_ITS | Clinical Summary ---
Author Organization [facility] Address [address] [facility] Attn: Epic Prelude ADT [place]ACE [place]SHER [address] Care Team Providers Care In File Operator Name Role Phone Yogi Solis MD Primary Care Provider + Allergies Active Allergy Reactions Criticality Noted Date Comments Bee Venom Protein (Honey Bee) Shortness of Breath/Wheezing High 12/31/2018 Active Problems Problem Noted Date Diagnosed Date Mixed receptive-expressive language disorder 08/2010 ADHD (attention deficit hyperactivity disorder) 10/03/2010 Nonorganic enuresis 01/05/2009 Encounters Date Type Department Care Team Description 12/21/2024 External Device Data ST[facility] ABSTRACTION Provider, Abstract 11/16/2024 External Device Data [facility] ABSTRACTION Provider, Abstract [...] on file Legal Sex Male 4:57 AM SHOULDER PAD MOLDER Gender Identity Not on file Sexual Orientation [...] INFLUENZA VACCINE (#1) 2024 3, 02/06/2012, 02/04/2003 COVID-19 Vaccine (2024-2 6 season) 2024 07/18/2021, 08/15/2020, 07/17/2020 HEPATITIS B VACCINES Completed 2001, 2001, 2001, Additional history exists Insurance [facility] [employer] [facility] MEDICAID Member Subscriber Plan / Payer (Ef fective 2024-Present) Name:Lacey Leblanc Jr. Relation to Subscriber:Self Name:Lacey Leblanc Jr. Payer ID:Not on file Group ID:Not on file Type:HMO Address: [place] [id number] * Guarantor: LACEY LEBLANC JR. Account Type Relation to Patient Date of Phone Billing Address Personal/Family [address] [place] [address] RX INFOCROSSING Medicaid Care Teams In File Operator Relationship Specialty Start Date End Date Yogi Solis MD [address] [place] [id number] PCP - General Family Practice 07/04/11
--- OUTSIDE RECORDS SUMMARY | 2025-01-11 23:52 | XMS_ITS | Encounter Summary ---
Author Organization [facility] Address [address] [place] [address] Care Team Providers Care Attending Urologist Name Role Phone Yogi Solis MD Primary Care Provider + Reason for Referral * Radiology Services (Routine) - Closed Specialty Diagnoses / Procedures Referred By Contac t Referred To Contact Diagnoses Accessory navicular bone of right foot Procedures XR FLUORO LESS THAN 1 HOUR Eliecer Villatoro MD Phone: tel: fax: Referral ID Status Reason Start Date Expiration Date Visits Re quested Visits Authorized [id number] Closed 08/12/2019 09/11/2020 1 1 Encounter Details Date Type Department Care Team (Latest Contact Info) Description 08/12/2019 Ancillary Orders [facility] Radiology [place] [address] [place] [address] Eliecer Villatoro MD [address] [place] [address] Accessory navicular bone of right foot Social History Tobacco Use Types Packs/Day Years Used Date Smoking Tobacco: Never Smokeless Tobacco: Never Alcohol Use Standard Drinks/Week Comments Never 0 (1 standard drink = 0.6 oz pur e alcohol) Sex and Gender Information Value Date Recorded Sex Assigned at Not on file 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
--- OUTSIDE RECORDS SUMMARY | 2025-01-11 23:52 | XMS_ITS | Patient Health Record ---
Author Organization [facility] Address [address] [place] [address] Support Name Relationship Address Phone Ashly Vidales Emergency Contact [address] [place] [address] Kodi Leblanc Guarantor Unknown [phone] Allergies Allergen (clinical drug ingredient) Drug/Non Drug [...] Coverage Start Date Coverage End Date Home [facility] [address] [facility] [place] [phone] [id number] Kodi Leblanc Self - patient is the insured [employer] [address] [address] [place] [address] [phone] [id number] Kodi Leblanc Self - patient is the insured
--- OUTSIDE RECORDS SUMMARY | 2025-01-11 23:52 | XMS_ITS | Clinical Summary ---
Author Organization [facility] Address [address] [place] [address] Care Team Providers Care Felt Hat Flanging Operator Name Role Phone Yady Adame Primary Care Provider [phone] Source Comments PLEASE NOTE, if this patient [...] 19+ 3-dose series) Hypertension Screening (#1) 08/30/2023 Alcohol and Drug Screen 03/03/2024 Depression Annual Screen 03/03/2024 08/30/2022 [id number] (1 - 2024- season) 2024 Imm-Influenza (#1) 2024 Insurance [employer] Care Teams Felt Hat Flanging Operator Relationship Specialty Start Date End Date Yady Adame PA [address] [place] [address] PCP - General 08/22/23
--- OUTSIDE RECORDS SUMMARY | 2025-01-11 23:52 | XMS_ITS | Encounter Summary ---
Author Organization [facility] Address [address] [place] [address] Care Team Providers Care Accounts Receivable Specialist Name Role Phone Yogi Solis MD Primary Care Provider + Encounter Details Date Type Department Care Team (Late st Contact Info) Description 02/04/2003 Outpatient Historical [facility] [address] [address] Naveen Mayer, DO [address] [place] [id number] Vaccine for influenza (Primary Dx) Social History Tobacco Use Types Packs/Day Years Used Date Smoking Tobacco: Never Assessed Sex and Gender Information Value Date Recorded Sex Assigned at Not on file 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
--- OUTSIDE RECORDS SUMMARY | 2025-01-11 23:52 | XMS_ITS | Encounter Summary ---
Author Organization [facility] Address [address] [place] [address] Care Team Providers Care Fishing Rod Mechanic Name Role Phone Yogi Solis MD Primary Care Provider + Encounter Details Date Type Department Care Team (Latest Contact Info) Description 04/04/2006 Outpatient Historical [facility]- 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
--- OUTSIDE RECORDS SUMMARY | 2025-01-11 23:52 | XMS_ITS | Clinical Summary ---
Author Organization [facility] Address [address] 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
--- OUTSIDE RECORDS SUMMARY | 2025-01-11 23:52 | XMS_ITS | Encounter Summary ---
Author Organization [facility] Address [address] [place] [address] Care Team Providers Care Charge Hand Name Role Phone Yady Adame Primary Care Provider [phone] Reason for Visit * Reason Comments Office Visit: Converted Data Conversion Encounter Details Date Type Department Care Team ([facility] st Contact Info) Description 09/09/2023 Dental Interim Note [facility] [address] [place] [address] [facility], [facility] [place] Social History Tobacco Use Types [...] Diagnoses Not on filedocumented in this encounter Additional Health Concerns Assessment Noted Time PHQ-2 Depression Total Score: 2 08/31/19 23 9:00 AM PDT documented as of this encounter Care Teams Charge Hand Relationship Specialty Start Date End Date Yady Adame PA [address] [place] [address] PCP - General 08/22/23 documented as of this encounter
[2025-01-12 00:37] VITALS: BP 120/60; PULSE 66; RESP 16; O2SAT 99
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
--- NOTE | 2025-01-12 01:01 | XR_ITS ---
WS: [id number] Exam: XR ribs LT 2V* [id number] Date/Time of Exam: 01/12/2025 1:01 AM Reason For Exam: LEFT rib cage pain No acute LEFT rib fracture. The LEFT lung is fully inflated and clear. No pleural or pulmonary reactive changes. XR/XR ribs LT 2V* [id number] IMPRESSION: 1. Negative LEFT rib study.
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
[2025-01-12 01:09] VITALS: BP 126/82; PULSE 72; O2SAT 93
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
[2025-01-12 02:00] VITALS: BP 120/65; PULSE 60; O2SAT 98
--- NOTE | 2025-01-12 02:03 | XRR_ITS ---
PROCEDURE INFORMATION: Exam: XR Chest Exam date and time: 01/12/2025 2:09 AM Age: 24 years old Clinical indication: Chest wall pain and left-sided; Additional info: L rib pain TECHNIQUE: Imaging protocol: Radiologic exam of the chest. Views: 1 view. COMPARISON: CR XR chest 1V portable [id number] 10/10/2024 7:21 PM FINDINGS: Lungs: Unremarkable. No consolidation. Pleural spaces: Unremarkable. No pleural effusion. No pneumothorax. Heart/Mediastinum: Unremarkable. No cardiomegaly. Bones/joints: Unremarkable. XR/XR chest 1V portable [id number] IMPRESSION: No acute findings.
[2025-01-12 02:30] VITALS: BP 118/68; PULSE 60; O2SAT 99
[2025-01-12 03:00] VITALS: BP 107/60; PULSE 56; O2SAT 100
[2025-01-12 03:30] VITALS: BP 107/60; PULSE 60; O2SAT 99
== END 2025-01-12 03:31 | disposition home or self-care (01) ==
PROVIDERS: Emergency Provider Emergency Medicine
DX: S00.83XA Contusion of other part of head, initial encounter (principal); S29.8XXA Other specified injuries of thorax, initial encounter; Y04.2XXA Assault by strike against or bumped into by another person, initial encounter
CPT/HCPCS: 70450; 70486; 71045; 71100; 99284; J9999

== ENCOUNTER 2025-01-28 04:12 | Emergency (ER) | payer BC, MEDICAID, SELFPAY ==
[2025-01-28 04:29] VITALS: BP 128/61; PULSE 55; RESP 20; TEMP 36.9; O2SAT 99; BMI 21.9
--- OUTSIDE RECORDS SUMMARY | 2025-01-28 04:30 | XMS_ITS | Clinical Summary ---
Author Organization [facility] Address [address] 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
--- OUTSIDE RECORDS SUMMARY | 2025-01-28 04:30 | XMS_ITS | Encounter Summary ---
Author Organization [facility] Address [address] [place] [address] Care Team Providers Care Zone Supervisor Firearms Name Role Phone Yogi Solis MD Primary Care Provider + Encounter Details Date Type Department Care Team (Late st Contact Info) Description 02/04/2003 Outpatient Historical [facility] Medicine [address] [address] Naveen Mayer, DO [address] [place] [place] [id number] Vaccine for influenza (Primary Dx) Social History Tobacco Use Types Packs/Day Years Used Date Smoking Tobacco: Never Assessed Sex and Gender Information Value Date Recorded Sex Assigned at Not on file 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
--- OUTSIDE RECORDS SUMMARY | 2025-01-28 04:30 | XMS_ITS | Encounter Summary ---
Author Organization [facility] Address [address] [place] [address] Care Team Providers Care Cargo Station Worker Name Role Phone Yogi Solis MD Primary Care Provider + Encounter Details Date Type Department Care Team (Latest Contact Info) Description 04/04/2006 Outpatient Historical [facility] Orthopedics- 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
--- OUTSIDE RECORDS SUMMARY | 2025-01-28 04:30 | XMS_ITS | Encounter Summary ---
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
--- OUTSIDE RECORDS SUMMARY | 2025-01-28 04:30 | XMS_ITS | Clinical Summary ---
Author Organization [facility] Address [address] [facility] Attn: Epic Prelude ADT JACE ASHER [address] Care Team Providers Care Asphalt Smoother Name Role Phone Yogi Solis MD Primary [...] on file Legal Sex Male 4:57 AM SENIOR PHYSICIAN Gender Identity Not on file Sexual Orientation [...] (#1) 2024 3, 02/06/2012, 02/04/2003 COVID-19 Vaccine ( - 2024-2 6 season) 2024 07/18/2021, 08/15/2020, 07/17/2020 HEPATITIS B VACCINES Completed 2001, 2001, 2001, Additional history exists Insurance [facility] [employer] [facility] MEDICA[facility] * Guarantor: LACEY LEBLANC JR. Account Type Relation to Patient Date of Phone Billing Address Personal/Family [address] [place] [address] RX INFOCROSSING Medicaid Care Teams Asphalt Smoother Relationship Specialty Start Date End Date Yogi Solis MD [address] [place] [id number] PCP - General Family Practice 07/04/11
--- OUTSIDE RECORDS SUMMARY | 2025-01-28 04:30 | XMS_ITS | Encounter Summary ---
Author Organization [facility] Address [address] [place] [address] Care Team Providers Care Cps Team Lead Name Role Phone Yogi Solis MD Primary Care Provider + Reason for Referral * Radiology Services (Routine) - Closed Specialty Diagnoses / Procedures Referred By Contac t Referred To Contact Diagnoses Accessory navicular bone of right foot Procedures XR FLUORO LESS THAN 1 HOUR Eliecer Villatoro MD Phone: tel: fax: Referral ID Status Reason Start Date Expiration Date Visits Re quested Visits Authorized [id number] Closed 08/12/2019 09/11/2020 1 1 Encounter Details Date Type Department Care Team (Latest Contact Info) Description 08/12/2019 Ancillary Orders [facility] Radiology [place] [address] [place] [address] Eliecer Villatoro MD [address] [place] [address] Accessory navicular bone of right foot Social History Tobacco Use Types Packs/Day Years Used Date Smoking Tobacco: Never Smokeless Tobacco: Never Alcohol Use Standard Drinks/Week Comments Never 0 (1 standard drink = 0.6 oz pur e alcohol) Sex and Gender Information Value Date Recorded Sex Assigned at Not on file 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
--- OUTSIDE RECORDS SUMMARY | 2025-01-28 04:30 | XMS_ITS | Encounter Summary ---
Author Organization [facility] Address [address] [place] [address] Care Team Providers Care Chief Of Staff Doctor Name Role Phone Yogi Solis MD Primary Care Provider + Encounter Details Date Type Department Care Team (Latest Contact Info) Description 05/06/2006 Outpatient Historical [facility] Orthopedics- 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
--- OUTSIDE RECORDS SUMMARY | 2025-01-28 04:30 | XMS_ITS | Encounter Summary ---
Author Organization [facility] Address [address] [place] [address] Care Team Providers Care Crop Ranch Hand Name Role Phone Yogi Solis MD Primary Care Provider + Encounter Details Date Type Department Care Team (Latest Contact Info) Description 04/11/2006 Outpatient Historical [facility] Orthopedics- [address] [place] 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
--- OUTSIDE RECORDS SUMMARY | 2025-01-28 04:30 | XMS_ITS | Patient Health Record ---
Author Organization [facility] Address [address] [place] [address] Support Name Relationship Address Phone Ashly Viadles Emergency Contact [address] [place] [address] Kodi Leblanc Guarantor Unknown [phone] Allergies Allergen (clinical drug ingredient) Drug/Non Drug [...] Coverage Start Date Coverage End Date [facility] [address] [facility] [place] [phone] [id number] Kodi Leblanc Self - patient is the insured [employer] [address] [address] [place] [address] [id number] Kodi Leblanc Self - patient is the insured
--- OUTSIDE RECORDS SUMMARY | 2025-01-28 04:30 | XMS_ITS | Encounter Summary ---
Author Organization [facility] Address [address] [place] [address] Care Team Providers Care Poultry Hanger Name Role Phone Yogi Solis MD Primary Care Provider + Encounter Details Date Type Department Care Team (Latest Contact Info) Description 11/10/2003 Outpatient Historical [facility] Internal Medicine and Pediatrics-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
[2025-01-28 04:34] VITALS: BP 128/61; PULSE 55; RESP 20; TEMP 36.9; O2SAT 99
--- NOTE | 2025-01-28 04:39 | ED_ITS ---
HPI - Dental/Oral General: Chief complaint: Dental/Oral Stated complaint: left side dental pain Time Seen by Provider: 01/28/25 04:38 History of Present Illness: 24-year-old male presents emergency room with complaints of dental pain on the left side of his jaw that began overnight. He has not had any fever sweats chills. No recent injury to the jaw. Associated symptoms: Denies fever(s) Related Data Previous Rx's ?Medication ?Instructions ?Recorded amoxicillin 875 mg-potassium 1 tab PO BID #20 tabs clavulanate 125 mg tablet diclofenac sodium 75 mg 75 mg PO Q12H PRN pain #20 t abs 01/28/25 tablet,delayed release Allergies Allergy/AdvReac Type Severity Reaction Status Date / Time prednisone Allergy ALGY-Swell Verified 01/12/25 00:03 Lip/Tongue/Throat Review of Systems Const: Denies: fever(s) or chills Card: Denies: chest pain Resp: Denies: dyspnea GI: Denies: abdominal pain : Denies: dysuria, urinary frequency or urinary urgency Musc: Denies: neck pain or back pain Skin/Breast: Denies: rash PFSH ED PFSH: Medical History Psychiatric care ADHD Anxiety Depression Surgical History History of wisdom tooth extraction, class I edentulism History of foot surgery right foot Family History Mother Diabetes Hypertension Sister Lung disease asthma Brother Bleeding disorder anemia Denies family history of CAD (coronary artery disease) Clotting disorder Dementia Hyperlipidemia Chronic kidney disease (CKD) Anesthesia complication Cancer Stroke Social History Smoking and tobacco/nicotine status: never used tobacco/nicotine Second hand smoke exposure: No Alcohol intake: never Substance/Drug Use: never Physical Exam Const: COMMON NORMALS: no acute distress GENERAL APPEARANCE: cooperative and comfortable ORIENTATION/CONSCIOUSNESS: Yes awake, Yes oriented to person, Yes oriented to place and Yes oriented to time HENMT: COMMON NORMALS: normocephalic, atraumatic and hearing grossly normal bilaterally HEAD & SCALP: normocephalic and atraumatic OTHER: Oropharynx posterior indwell is clear there is no gingival swelling or irritation there are some dental caries on the posterior left mandibular molars. No drainage. Resp: COMMON NORMALS: normal respiratory effort, No retractions, No use of accessory muscles and clear to auscultation bilaterally AUSCULTATION: clear to auscultation bilaterally Cardio: COMMON NORMALS: regular rate, regular rhythm and No murmurs present (Cardio) RATE: regular rate RHYTHM: regular rhythm Extremity: COMMON NORMALS: normal to inspection, capillary refill normal, no clubbing, cyanosis or edema, no calf tenderness and no pedal edema Neuro: SENSORIUM/ORIENTATION: Yes oriented to person, Yes oriented to place and Yes oriented to time Skin: COMMON NORMALS: no rashes or lesions noted GENERAL SKIN EXAM: no rashes or lesions noted Course Vital Signs: Vital signs: Vital Signs Temperature 98.4 F 01/28/25 04:34 Pulse Rate 55 L 01/28/25 04:34 Respiratory Rate 20 H 01/28/25 04:34 Blood Pressure 128/61 01/28/25 04:34 Pulse Oximetry 99 01/28/25 04:34 Oxygen Delivery Me thod Room Air 01/28/25 04:34 MDM - Dental/Oral Medical Decision Making Medical decision making Social determinants: None I reviewed the patient's medical record. I reviewed the patient's current home meds Alternate historians: None Differential diagnosis dental abscesses dental caries Lab Review: None Imaging: None Assessment of risk: Level of risk: Low Hospitalization considerations: No consideration for hospitalization Assessment and plan: Patient having dental pain there is tenderness over the lower mandible but no cervical or submandibular lymphadenopathy. Started Augmentin 875 twice daily for 10 days give diclofenac to use as needed encouraged follow-up with dentist No radiology studies performed this visit Discharge Plan Discharge Patient Disposition: Home Clinical Impression: Pain due to dental caries Condition: Stable Prescriptions: New amoxicillin-pot clavulanate 875-125 mg tablet 1 tab PO BID Qty: 20 0RF diclofenac sodium 75 mg tablet,delayed release (DR/EC) 75 mg PO Q12H PRN (Reason: pain) Qty: 20 0RF Discharge Orders: Discharge ED (Routine); Ordered 01/28/25 Ordered By: Kiran Honeycutt Discharge Diet: Soft Mechanical Discharge Activity: Resume usual activity Patient Instructions: Opioid Safety, Pain Management, Patient Portal & Torres Instructions Activity Restrictions/Additional Instructions: [facility] you [facility] your healthcare needs today. It is very important that you follow up as instructed or that you return to the Emergency Department should you have concerns or if your condition changes or worsens in any way. Emergency department visits are focused on emergent conditions, in some cases you may require further evaluation on an outpatient basis. You are seen the emergency room with complaints of left-sided dental pain and did have a carious and posterior lower molar. There is no gumline swelling. You are given a shot of pain medicine in the emergency room. Discharge home with Augmentin 1 tablet twice a day for 10 days also given diclofenac to use for pain follow-up with a dentist as soon as you are able (Please note that included in your discharge packet is information concerning opioid safety and pain management. This information is given to all patients were discharged from the ER regardless of their discharge diagnosis or the medicines they usually take or are prescribed.) Print Language: Georgian Coding Level of Care Code ED Thread Grinder for Latisha Wing
== END 2025-01-28 05:07 | disposition home or self-care (01) ==
PROVIDERS: Emergency Provider Family Medicine
DX: K02.9 Dental caries, unspecified (principal)
CPT/HCPCS: 96372; 99284; J1885

== ENCOUNTER 2025-02-20 14:56 | Emergency (ER) | payer BC, MEDICAID, SELFPAY ==
--- OUTSIDE RECORDS SUMMARY | 2025-02-20 15:03 | XMS_ITS | Encounter Summary ---
Author Organization [facility] Address [address] [place] [address] Care Team Providers Care Currency Machine Operator Name Role Phone Yogi Solis MD [...] Expiration Date Visits Re quested Visits Authorized [id number] Closed 08/12/2019 09/11/2020 1 1 Encounter Details Date Type Department Care Team (Latest Contact Info) Description 08/12/2019 Ancillary Orders [facility] Radiology OR [address] [place] [id number] Eliecer Villatoro MD [address] [place] [address] Accessory navicular bone of right foot Social History Tobacco Use Types Packs/Day Years Used Date Smoking Tobacco: Never Smokeless Tobacco: Never Alcohol Use Standard Drinks/Week Comments Never 0 (1 standard drink = 0.6 oz pur e alcohol) Sex and Gender Information Value Date Recorded Sex Assigned at Not on file 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 No / Unsure 08/13/2019 6:09 AM CDT documented as of this encounter Plan of [...] foot documented in this encounter Care Teams Currency Machine Operator Relationship Specialty Start Date End Date Yogi Solis MD PCP - General Family Practice 07/04/11 documented as of this encounter
--- OUTSIDE RECORDS SUMMARY | 2025-02-20 15:03 | XMS_ITS | Encounter Summary ---
Author Organization [facility] Address [address] [place] [address] Care Team Providers Care Peoplesoft Financials Name Role Phone Yogi Solis MD Primary Care Provider + Encounter Details Date Type Department Care Team (Latest Contact Info) Description 04/04/2006 Outpatient Historical [facility] Orthopedics- 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
--- OUTSIDE RECORDS SUMMARY | 2025-02-20 15:03 | XMS_ITS | Patient Health Record ---
Author Organization [facility] Address [address] [place] [address] Support Name Relationship Address Phone Ashly Vidales Emergency Contact [address] [place] [address] Kodi Leblanc Guarantor Unknown [phone] Allergies Allergen (clinical drug ingredient) Drug/Non Drug [...] Coverage Start Date Coverage End Date Home [facility] [address] [facility] J[place] coleman [phone] [id number] Kodi Leblanc Self - patient is the insured [employer] [address] [address] [place] [phone] [id number] Kodi Leblanc Self - patient is the insured
--- OUTSIDE RECORDS SUMMARY | 2025-02-20 15:03 | XMS_ITS | Encounter Summary ---
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
--- OUTSIDE RECORDS SUMMARY | 2025-02-20 15:03 | XMS_ITS | Encounter Summary ---
Author Organization [facility] Address [address] [place] [address] Care Team Providers Care Farm Products Shipper Name Role Phone Yogi Solis MD Primary Care Provider + Encounter Details Date Type Department Care Team (Late st Contact Info) Description 02/04/2003 Outpatient Historical [facility] Family Medicine [address] [address] Naveen Mayer, DO [address] [place] [id number] Vaccine for influenza (Primary Dx) Social History Tobacco Use Types Packs/Day Years Used Date Smoking Tobacco: Never Assessed Sex and Gender Information Value Date Recorded Sex Assigned at Not on file 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
--- OUTSIDE RECORDS SUMMARY | 2025-02-20 15:03 | XMS_ITS | Encounter Summary ---
Author Organization [facility] Address [address] [place] [address] Care Team Providers Care Hand Hardener Name Role Phone Yogi Solis MD Primary Care Provider + Encounter Details Date Type Department Care Team (Late st Contact Info) Description 02/15/2025 External Device Data [facility] ABSTRACTION Provider, Abstract NO ADDRESS ON FILE Social History Tobacco Use Types Packs/Day Years Used Date Smoking Tobacco: Never Smokeless Tobacco: Never Alcohol Use Standard Drinks/Week Comments Never 0 (1 standard drink = 0.6 oz pur e alcohol) Sex and Gender Information Value Date Recorded Sex Assigned at Not on file Legal Sex Male 4:57 AM USPS LETTER CARRIER Gender Identity Not on file Sexual Orientation Not on file documented as of this encounter Plan of Treatment Not on file documented as of this encounter Visit Diagnoses Not on filedocumented in this encounter Care Teams Hand Hardener Relationship Specialty Start Date End Date Yogi Solis MD [address] [place] [address] PCP - General Family Practice 07/04/11 documented as of this encounter
--- OUTSIDE RECORDS SUMMARY | 2025-02-20 15:03 | XMS_ITS | Clinical Summary ---
Author Organization [facility] Address [address] [facility] [place]: [place] [address] Care Team Providers Care Roller Shop Supervisor Name Role Phone Yogi Solis MD Primary Care Provider + Allergies Active Allergy Reactions Criticality Noted Date Comments Bee Venom Protein (Honey Bee) Shortness of Breath/Wheezing High 12/31/2018 Active Problems Problem Noted Date Diagnosed Date Mixed receptive-expressive language disorder 08/2010 ADHD (attention deficit hyperactivity disorder) 10/03/2010 Nonorganic enuresis 01/05/2009 Encounters Date Type Department Care Team Description 02/15/2025 External Device Data STL ABSTRACTION Provider, Abstract 02/01/2025 External Device Data [facility] ABSTRACTION Provider, Abstract 12/21/2024 External Device Data [facility] ABSTRACTION Provider, [...] on file Legal Sex Male 4:57 AM HIDE AND SKIN CLASSER Gender Identity Not on file Sexual Orientation [...] (#1) 2024 3, 02/06/2012, 02/04/2003 COVID-19 Vaccine (4 - 2024-2 6 season) 2024 07/18/2021, 08/15/2020, 07/17/2020 HEPATITIS B VACCINES Completed 2001, 2001, 2001, Additional history exists Insurance [facility] MEDICAID Member Subscriber Plan / Payer (Ef fective 2024-Present) Name:Lacey Leblanc Jr. Relation to Subscriber:Self Name:Lacey Leblanc Jr. Payer ID:Not on file Group ID:Not on file Type:HMO Address: [place] [id number] * Guarantor: LACEY LEBLANC JR. Account Type Relation to Patient Date of Phone Billing Address Personal/Family [address] [place] [address] RX INFOCROSSING Medicaid Care Teams Roller Shop Supervisor Relationship Specialty Start Date End Date Yogi Solis MD [address] [place] [address] PCP - General Family Practice 07/04/11
--- OUTSIDE RECORDS SUMMARY | 2025-02-20 15:03 | XMS_ITS | Encounter Summary ---
Author Organization [facility] Address [address] [place] [address] Care Team Providers Care Animal Attendants And Trainers Name Role Phone Yogi Solis MD Primary Care Provider + Encounter Details Date Type Department Care Team (Latest Contact Info) Description 04/11/2006 Outpatient Historical [facility] Orthopedics- 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
--- OUTSIDE RECORDS SUMMARY | 2025-02-20 15:03 | XMS_ITS | Encounter Summary ---
Author Organization [facility] Address [address] [place] [address] Care Team Providers Care Autism Tutor Name Role Phone Yogi Solis MD Primary Care Provider + Encounter Details Date Type Department Care Team (Latest Contact Info) Description 11/10/2003 Outpatient Historical [facility] Internal Medicine and Pediatrics-[address] [place] [address] Sakshi Montemayor, DO [address] [address] ACUTE SINUSITIS NOS (Primary Dx) Social History Tobacco Use Types Packs/Day Years Used Date Smoking Tobacco: Never Assessed Sex and Gender Information Value Date Recorded Sex Assigned at Not on file Legal Sex Male 4:[address] COMMISSIONER Gender Identity Not on file Sexual Orientation Not on file documented as of this encounter Plan of Treatment Not on file documented as of this encounter Visit Diagnoses Diagnosis Acute sinusitis, unspecified- Primary documented in this encounter Care Teams Autism Tutor Relationship Specialty Start Date End Date Yogi Solis MD PCP - General Family Practice 07/04/11 documented as of this encounter
--- OUTSIDE RECORDS SUMMARY | 2025-02-20 15:03 | XMS_ITS | Encounter Summary ---
Author Organization [facility] Address [address] [place] [address] Care Team Providers Care Leak Operator Paraffin Plant Name Role Phone Yogi Solis MD Primary Care Provider + Encounter Details Date Type Department Care Team (Latest Contact Info) Description 05/06/2006 Outpatient Historical [facility] Orthopedics- [address] [place] [address] Prateek Coburn MD [address] [place] [address] Closed Fracture of Lower End of Radius with Ulna (Primary Dx) Social History Tobacco Use Types Packs/Day Years Used Date Smoking Tobacco: Never Assessed Sex and Gender Information Value Date Recorded Sex Assigned at Not on file Legal Sex Male 4:56 AM RELEASE AND TECHNICAL RECORDS CLERK Gender Identity Not on file Sexual Orientation Not on file documented as of this encounter Plan of Treatment Not on file documented as of this encounter Visit Diagnoses Diagnosis Closed fracture of lower end of radius with ulna- Primary documented in this encounter Care Teams Leak Operator Paraffin Plant Relationship Specialty Start Date End Date Yogi Solis MD PCP - General Family Practice 07/04/11 documented as of this encounter
--- OUTSIDE RECORDS SUMMARY | 2025-02-20 15:03 | XMS_ITS | Clinical Summary ---
Author Organization [facility] Address [address] [place] [address] Care Team Providers Care Helper Coordinator Name Role Phone Yogi Solis MD [...] on file Legal Sex Male 4:56 AM CAREER SERVICES COORDINATOR Gender Identity Not on file Sexual [...] B VACCINES Completed 2001, 2001, 2001 Insurance [employer] RX INFOCROSSING Medicaid Care Teams Helper Coordinator Relationship Specialty Start Date End Date Yogi Solis MD PCP - General Family Practice 07/04/11
[2025-02-20 15:08] VITALS: BP 104/72; PULSE 78; RESP 18; TEMP 36.8; O2SAT 98; BMI 21.1
[2025-02-20] MEDS: ondansetron 2 mg/ML SDV 2 mL 4 MG IVP (16:00)
--- NOTE | 2025-02-20 16:01 | W.ED.NAVMDI ---
HPI - Nausea/Vomiting/Diarrhea General: Chief complaint: Nausea/Vomiting/Diarrhea Stated complaint: N/V/D Hands Tingle weakness Time Seen by Provider: 02/20/25 15:02 Source: patient Mode of arrival: ambulatory Limitations: no limitations History of Present Illness: 24-year-old male states he has been having vomiting along with some diarrhea since this morning. States that multiple episodes of vomiting now is having some slight abdominal cramping states he feels like he is dehydrated and having some mild weakness. He denies any fever denies any severe abdominal pain denies any dysuria Related Data Previous Rx's ?Medication ?Instructions ?Recorded amoxicillin 875 mg-potassium 1 tab PO BID #20 tabs 01/28/25 clavulanate 125 mg tablet diclofenac sodium 75 mg 75 mg PO Q12H PRN pain #20 tabs 01/28/25 tablet,delayed release ondansetron 4 mg disintegrating 4 mg PO Q6H PRN nausea and 02/20/25 tablet vomiting #14 tabs Allergies Allergy/AdvReac Type Severity Reaction Status Date / Time prednisone Allergy ALGY-Swell Verified 01/12/25 00:03 Lip/Tongue/Throat Review of Systems GI: Reports: vomiting PFSH ED PFSH: Medical History (Updated 02/20/25 @ 18:41 by Priyanka Montalvo MD) Psychiatric care ADHD Anxiety Depression Surgical History (Updated 02/15/25 @ 15:55 by Naveen Ahuja MD) History of wisdom tooth extraction, class I edentulism History of foot surgery right foot - Shaved off the accessory navicular bone - [place] Family History Mother Diabetes Hypertension Sister Lung disease asthma Brother Bleeding disorder anemia Denies family history of CAD (coronary artery disease) Clotting disorder Dementia Hyperlipidemia Chronic kidney disease (CKD) Anesthesia complication Cancer Stroke Social History (Updated 02/15/25 @ 16:02 by Naveen Ahuja MD) Smoking and tobacco/nicotine status: never used tobacco/nicotine Second hand smoke exposure: No Alcohol intake: current Alcohol intake frequency: few times a week Alcohol type: beer Substance/Drug Use: never Physical Exam Const: COMMON NORMALS: no acute distress, patient oriented x3 and healthy appearing HENMT: COMMON NORMALS: normocephalic and atraumatic HEAD & SCALP: normocephalic and atraumatic Neck/C-Spine: COMMON NORMALS: full ROM and supple Chest: COMMONS NORMALS: normal inspection of the chest and normal palpation of entire chest wall Resp: COMMON NORMALS: normal respiratory effort, No retractions, No use of accessory muscles and clear to auscultation bilaterally AUSCULTATION: clear to auscultation bilaterally Cardio: COMMON NORMALS: regular rate, regular rhythm and No murmurs present (Cardio) RATE: regular rate RHYTHM: regular rhythm GI: COMMON NORMALS: Normal to inspection, nondistended, normoactive bowel sounds present, Soft to palpation, non-tender and no masses PALPATION: Yes Soft to palpation Extremity: COMMON NORMALS: normal to inspection and full ROM Neuro: COMMON NORMALS: patient oriented x3, moves all extremities and no focal motor deficits Psych: COMMON NORMALS: mental status grossly normal, Normal thought process present and cooperative THOUGHT PROCESS: Normal thought process present Skin: COMMON NORMALS: no rashes or lesions noted and no wounds GENERAL SKIN EXAM: no rashes or lesions noted Course Vital Signs: Vital signs: Vital Signs Temperature 98.2 F 02/20/25 15:08 Pulse Rate 79 02/20/25 18:00 Respiratory Rate 18 02/20/25 15:08 Blood Pressure 119/49 02/20/25 18:00 Pulse Oximetry 99 02/20/25 18:00 Oxygen Delivery Me thod Room Air 02/20/25 15:08 MDM - Nausea/Vomiting/Diarrhea Medical Decision Making Patient presents here with vomiting differential includes viral gastritis, small bowel obstruction, appendicitis. White count here was normal he feels much improved after Zofran and fluids he has been able to tolerate p.o. here after. CT scan showed no significant findings he has no signs of a bowel obstruction here he has been tolerating p.o. Did have an elevated bilirubin did run a hepatitis panel and does have hepatitis B likely causing his elevated bilirubin will prescribe him Zofran he is to follow-up with his PCP and return if worsening I did go over all this with him he understands agrees to plan Medical Records I reviewed the patient's medical records. Lab Data I reviewed the patient's lab results. 02/20/25 15:54 02/20/25 17:17 Radiology Impressions Abdomen/Pelvis CT 02/20/25 17:09 IMPRESSION: Moderate proximal small bowel distension with differential air-fluid levels, may represent early or partial small bowel obstruction. Distal small bowel is decompressed. It is difficult to determine any transition point. No evidence of constipation or diverticulitis. 1.1 cm cortical renal cyst on the left side. No follow-up needed. No evidence of gallstone, pancreatitis or urinary tract obstruction. COMMENTS: Consistent with the [employer]'s Incidental Findings Committee white paper (J Am Katherine Radiol 2018): Any incidental renal lesion less than 1 cm or classified as too small to characterize, or any incidental cystic renal lesion characterized as simple-appearing, is likely benign. No follow-up imaging is recommended for these lesions per consensus recommendations based on imaging criteria. Laboratory Results WBC 14.08 10^3/uL (3.29-11.43) H 02/20/25 15:54 RBC 5.34 10^6/uL (3.85-5.65) 02/20/25 15:54 Hgb 16.20 g/dL (11.27-16.99) 02/20/25 15:54 Hct 48.5 % (37-53) 02/20/25 15:54 MCV 90.8 fl (82-101) 02/20/25 15:54 MCH 30.3 pg (27-33) 02/20/25 15:54 MCHC 33.4 g/dL (30-55) 02/20/25 15:54 RDW 12.6 % (12.1-15.1) 02/20/25 15:54 Plt Count 220 10^3/cmm (157-399) 02/20/25 15:54 MPV 10.3 fL (7.4-10.4) 02/20/25 15:54 Neut % (Auto) 92.6 % 02/20/25 15:54 Lymph % (Auto) 1.5 % 02/20/25 15:54 [place] % (Auto) 5.2 % 02/20/25 15:54 Eos % (Auto) 0.1 % 02/20/25 15:54 Baso % (Auto) 0.1 % 02/20/25 15:54 Neut # (Auto) 13.03 10^3/uL (1.8-7.7) H 02/20/25 15:54 Lymph # (Auto) 0.2 10^3/uL (0.8-4.8) L 02/20/25 15:54 [place] # (Auto) 0.7 10^3/uL (0.2-0.9) 02/20/25 15:54 Eos # (Auto) 0.0 10^3/uL (0.0-0.8) 02/20/25 15:54 Baso # (Auto) 0.0 10^3/uL (0.0-0.1) 02/20/25 15:54 Nucleated RBC % (auto) 0 % 02/20/25 15:54 Nucleated RBCs # 0.0 /100WBC 02/20/25 15:54 Sodium 138 mmol/L (136-145) 02/20/25 17:17 Potassium 4.7 mmol/L (3.5-5.1) 02/20/25 17:17 Chloride 103 mmol/L (98-107) 02/20/25 17:17 Carbon Dioxide 19 mmol/L (22-29) L 02/20/25 17:17 Anion Gap 20.7 (5-19) H 02/20/25 17:17 BUN 26 mg/dL (6-20) H 02/20/25 17:17 Creatinine 0.9 mg/dL (0.7-1.2) 02/20/25 17:17 GFR Calculation 104.6 mL/min (90-130) 02/20/25 17:17 Glucose 72 mg/dL (65-115) 02/20/25 17:17 Calculated Osmolality 289 mOsm/kg (285-295) 02/20/25 17:17 Calcium 8.4 mg/dL (8.5-10.5) L 02/20/25 17:17 Total Bilirubin 4.3 mg/dL (0.15-1.2) H 02/20/25 17:17 AST 50 U/L (0-40) H 02/20/25 17:17 ALT 17 U/L (0-41) 02/20/25 17:17 Alkaline Phosphatase 82 U/L (40-130) 02/20/25 17:17 Total Protein 6.7 g/dL (6.6-8.7) 02/20/25 17:17 Albumin 4.5 g/dL (3.5-5.2) 02/20/25 17:17 Globulin 2.2 g/dL (1.3-4.6) 02/20/25 17:17 Lipase 18 U/L (13-60) 02/20/25 15:54 Hepatitis A IgM Ab Non-reactive (Nonreactive) 02/20/25 15:54 Hep B Core Total Ab Non-reactive (Nonreactive) 02/20/25 15:54 Hepatitis C Antibody Non-reactive (Nonreactive) 02/20/25 15:54 All radiology interpretation(s) finalized by discharge Discharge Plan Discharge Patient Disposition: Home Clinical Impression: Vomiting, Hepatitis B Condition: Stable Prescriptions: New ondansetron 4 mg tablet,disintegrating 4 mg PO Q6H PRN (Reason: nausea and vomiting) Qty: 14 0RF No Action amoxicillin-pot clavulanate 875-125 mg tablet 1 tab PO BID Qty: 20 0RF diclofenac sodium 75 mg tablet,delayed release (DR/EC) 75 mg PO Q12H PRN (Reason: pain) Qty: 20 0RF Discharge Orders: Discharge ED (Routine); Ordered 02/20/25 Ordered By: Priyanka Montalvo Referrals: Naveen Ahuja MD [Primary Care Provider, Family Practice] - 4-7 days Discharge Diet: Advance as tolerated Discharge Activity: Resume usual activity Patient Instructions: Hepatitis B (ED), Acute Nausea and Vomiting (ED) Print Language: Sinhala Coding Level of Care Code ED [employer] for Latisha Wing
[2025-02-20 16:05] VITALS: BP 98/71; PULSE 70; O2SAT 100
[2025-02-20 16:12] LABS: Hematocrit 48.5 % (37-53); Hemoglobin 16.20 g/dL (11.27-16.99); Mean Corpuscular HGB Conc 33.4 g/dL (30-55); Mean Corpuscular Hemoglobin 30.3 pg (27-33); Mean Corpuscular Volume 90.8 fl (82-101); Nucleated Red Blood Cells % 0 %; Platelet Count 220 10^3/cmm (157-399); Red Blood Count 5.34 10^6/uL (3.85-5.65); White Blood Count 14.08 10^3/uL (3.29-11.43)
[2025-02-20 16:34] LABS: Alanine Aminotransferase 19 U/L (0-41); Albumin Level 4.9 g/dL (3.5-5.2); Alkaline Phosphatase 91 U/L (40-130); Blood Urea Nitrogen 26 mg/dL (6-20); Calcium 9.1 mg/dL (8.5-10.5); Carbon Dioxide 19 mmol/L (22-29); Chloride 99 mmol/L (98-107); Globulin 2.7 g/dL (1.3-4.6); Glucose 71 mg/dL (65-115); Lipase 18 U/L (13-60); Osmolality Calculated 285 mOsm/kg (285-295); Sodium 136 mmol/L (136-145); Total Protein 7.6 g/dL (6.6-8.7)
[2025-02-20 16:40] LABS: Anion Gap 22.7 (5-19); Aspartate Amino Transferase 61 U/L (0-40); Potassium 4.7 mmol/L (3.5-5.1)
--- NOTE | 2025-02-20 17:09 | CTR_ITS ---
PROCEDURE INFORMATION: Exam: CT Abdomen And Pelvis With Contrast Exam date and time: 02/20/2025 5:19 PM Age: 24 years old Clinical indication: Vomiting TECHNIQUE: Imaging protocol: Computed tomography of the abdomen and pelvis with contrast. 3 image(s) are submitted. Radiation optimization: All CT scans at this facility use at least one of these dose optimization techniques: automated exposure control; mA and/or kV adjustment per patient size (includes targeted exams where dose is matched to clinical indication); or iterative reconstruction. Contrast material: OMNI 350; Contrast volume: 100 ml; Contrast route: INTRAVENOUS (IV); COMPARISON: CR (CHEST, ) 01/12/2025 2:09 AM RADIATION DOSE METRICS: Total DLP (mGy-cm): 352.28 FINDINGS: Liver: Normal. No mass. Gallbladder and biliary ducts: See Stomach and bowel finding. Pancreas: See Stomach and bowel finding. Spleen: Normal. No splenomegaly. Adrenal glands: Normal. No mass. Kidneys and ureters: See Stomach and bowel finding. Stomach and bowel: Moderate proximal small bowel distension with differential air-fluid levels, may represent early or partial small bowel obstruction. Distal small bowel is decompressed. It is difficult to determine any transition point. No evidence of constipation or diverticulitis. 1.1 cm cortical renal cyst on the left side. No follow-up needed. No evidence of gallstone, pancreatitis or urinary tract obstruction. Appendix: Normal appendix. IVC, aorta, superior mesenteric artery, superior mesenteric vein and portal vein are unremarkable. Intraperitoneal space: Unremarkable. No free air. No significant fluid collection. Vasculature: See Appendix finding. Lymph nodes: Unremarkable. No enlarged lymph nodes. Urinary bladder: Unremarkable as visualized. Reproductive: Unremarkable as visualized. Bones/joints: Unremarkable. No acute fracture. Soft tissues: Unremarkable. CT/CT abdomen pelvis w con* [id number] IMPRESSION: Moderate proximal small bowel distension with differential air-fluid levels, may represent early or partial small bowel obstruction. Distal small bowel is decompressed. It is difficult to determine any transition point. No evidence of constipation or diverticulitis. 1.1 cm cortical renal cyst on the left side. No follow-up needed. No evidence of gallstone, pancreatitis or urinary tract obstruction. COMMENTS: Consistent with the [employer]'s Incidental Findings Committee white paper (J Am Katherine Radiol 2018): Any incidental renal lesion less than 1 cm or classified as too small to characterize, or any incidental cystic renal lesion characterized as simple-appearing, is likely benign. No follow-up imaging is recommended for these lesions per consensus recommendations based on imaging criteria.
[2025-02-20] MEDS: iohexol 350 mg/mL 500 mL Btl (per mL) IV (17:22)
[2025-02-20 17:40] LABS: Alanine Aminotransferase 17 U/L (0-41); Albumin Level 4.5 g/dL (3.5-5.2); Alkaline Phosphatase 82 U/L (40-130); Anion Gap 20.7 (5-19); Aspartate Amino Transferase 50 U/L (0-40); Blood Urea Nitrogen 26 mg/dL (6-20); Calcium 8.4 mg/dL (8.5-10.5); Carbon Dioxide 19 mmol/L (22-29); Chloride 103 mmol/L (98-107); Globulin 2.2 g/dL (1.3-4.6); Glucose 72 mg/dL (65-115); Osmolality Calculated 289 mOsm/kg (285-295); Potassium 4.7 mmol/L (3.5-5.1); Sodium 138 mmol/L (136-145); Total Protein 6.7 g/dL (6.6-8.7)
[2025-02-20 18:00] VITALS: BP 119/49; PULSE 79; O2SAT 99
[2025-02-20 18:31] LABS: Hepatitis A Antibody IgM Non-Reactive (Nonreactive)
[2025-02-20 18:48] VITALS: BP 113/47; PULSE 90; O2SAT 99
[2025-02-20 19:20] LABS: Hepatitis B Surface Antigen Non-Reactive (Nonreactive)
== END 2025-02-20 18:49 | disposition home or self-care (01) ==
PROVIDERS: Emergency Provider Emergency Medicine; PCP Family Medicine
DX: R11.10 Vomiting, unspecified (principal); B19.10 Unspecified viral hepatitis B without hepatic coma
CPT/HCPCS: 36415; 74177; 80053; 83690; 85025; 86705; 86706; 86709; 86803; 87340; 96361; 96374; 99285; J2405; J7030